=== PATIENT | male | born 1965 | race Caucasian/White ===

== ENCOUNTER 2016-10-31 00:48 | Emergency (ER) | payer OTHER ==
[~2016-10-31] VITALS: Ht 182.9 cm; Wt 70.5 kg
[~2016-10-31 00:48] MED LIST: ATARAX 25MG25 MG/TAB PO; ATOMOXETINE; BUTRANS10 MCG/HR TD; CEPHALEXIN500 M1 PO; CLINDAMYCIN HC150 MG PO; CLINDAMYCIN300 MG PO; COREG12.5 MG PO; CYMBALTA 60MG60 MG PO; DILAUDID 2MG TAB2 MG PO; INDOMETHACIN25 MG PO; LAMISIL CREAM30 GM TP; OXYCONTIN60 MG PO; PEN-VEE K500 MG PO; PERCOCET 325 MG1 TA2 PO; PERCOCET 5/321 UDTAB PO; PHENERGAN25 MG RC; PREDNISONE20 MG PO; VITAMIN C1 TAB PO; VITAMIN D; ZITHROMAX 250M250 MG PO; ZOFRAN4 M1 PO; [UNRECOGNIZED DRUG - OTHER]
[2016-10-31 00:57] VITALS: PULSE 66; TEMP 97.9
[2016-10-31] MEDS ORDERED: FLEXERIL5 MG PO ×2 (01:05→01:06)
[2016-10-31] MEDS ORDERED: PEN-VEE K500 MG PO (01:56)
[2016-10-31 02:00] VITALS: BP 160/98
== END 2016-10-31 02:08 | disposition home or self-care (01) ==
LOC: COL.ER 00:48
DX: K08.89 Other specified disorders of teeth and supporting structures (principal); K01.1 Impacted teeth; K03.81 Cracked tooth; I10 Essential (primary) hypertension; F17.210 Nicotine dependence, cigarettes, uncomplicated; T44.7X6A Underdosing of beta-adrenoreceptor antagonists, initial encounter; Z91.128 Patient's intentional underdosing of medication regimen for other reason

== ENCOUNTER → 2020-08-30 | Outpatient (CLI) | payer OTHER ==
[~2020-08-30] MED LIST changes: +FLEXERIL5 MG PO
== END ==
LOC: COL.RAD 07:19
DX: M51.26 Other intervertebral disc displacement, lumbar region (principal); M79.661 Pain in right lower leg; R20.0 Anesthesia of skin; Z98.1 Arthrodesis status
CPT/HCPCS: A9585

== ENCOUNTER 2022-03-20 05:18 | Day surgery (SDC) | payer OTHER ==
[~2022-03-20] VITALS: Ht 182.9 cm; Wt 77.3 kg
[2022-03-20] MEDS ORDERED: TOPROL XL 25MG25 MG PO (05:43)
[2022-03-20] MEDS ORDERED: NATURE'S BLEND600 M2 PO (05:43)
[2022-03-20] MEDS ORDERED: ASPIRIN E.C. 8181 MG PO (05:44)
[2022-03-20] MEDS ORDERED: PERCOCET 325 MG1 TAB PO (05:44)
[2022-03-20 05:56] VITALS: BP 165/97; PULSE 70; TEMP 98.3
--- NOTE | 2022-03-20 06:25 | NUR ---
0530 - 56 year old male admitted [place] [facility] [place] [place] ambulation w/o assistive devices per own will. Procedure verified and consent signed. Medications, HX and allergies reviewed. PT did not bring a medication list, but is a good health historian. PT states metal implants in lower spine and neck. PT oriented to room and call alarcon, within reach; non-slip socks are on and side rails x1. Vitals obtained.
[2022-03-20] MEDS ORDERED: CEPHALEXIN500 M1 PO (07:45)
[2022-03-20] MEDS ORDERED: PERCOCET 325 MG1 TA2 PO (07:45)
[2022-03-20 11:30] VITALS: BP 141/83; PULSE 63; TEMP 97.8
[2022-03-20 11:45] VITALS: BP 132/79; PULSE 59; TEMP 97.8
[2022-03-20 12:00] VITALS: BP 133/78; PULSE 60; TEMP 97.8
--- NOTE | 2022-03-20 12:11 | NUR ---
PT TO ROOM 332 PER BED WITH REPORT FROM SHARRI TYLER [email or web address]. PT IS A/O X3 VSS, LUNGS COARSE, PT IS CURRENT EVERYDAY SMOKER. IV TO LWRIST. DRESSING TO RIGHT SHOULDER CDI WITH AQUACEL OVER INCISION. RIGHT ARM IN SIMPLE SLING. PROVIDED PEPSI AND SANDWICH BOX PER PT REQUEST. PT HAS DISCHARGE ORDERS PER DR. LUO.
[2022-03-20 12:15] VITALS: BP 133/78; PULSE 60; TEMP 97.8
[2022-03-20 12:46] VITALS: BP 128/76; PULSE 59; TEMP 97.8
--- NOTE | 2022-03-20 15:28 | NUR ---
PT MET DISCHARGE CRITERIA AND WAS DISCHARGED PER WHEEL CHAIR AFTER REVIEWING DISCHARGE INSTRUCTIONS.
== END 2022-03-20 15:47 | disposition home or self-care (01) ==
LOC: SDCO 05:18 → SURG 11:30 → SDCO 15:47
DX: M75.101 Unspecified rotator cuff tear or rupture of right shoulder, not specified as traumatic (principal); I10 Essential (primary) hypertension; Z79.82 Long term (current) use of aspirin; Z79.891 Long term (current) use of opiate analgesic; Z79.899 Other long term (current) drug therapy; F17.210 Nicotine dependence, cigarettes, uncomplicated
CPT/HCPCS: OP; A4619; C1713; C1776; J0330; J0360; J1100; J1170; J1580; J2250; J2405; J2704; J2710; J2795; J3010; J7120

== ENCOUNTER → 2023-07-10 | Outpatient (CLI) | payer OTHER ==
[~2023-07-10] MED LIST changes: +ASPIRIN E.C. 8181 MG PO; +NATURE'S BLEND600 M2 PO; +PERCOCET 325 MG1 TAB PO; +TOPROL XL 25MG25 MG PO
== END ==
LOC: COL.RAD 13:56
DX: M94.262 Chondromalacia, left knee (principal); M23.204 Derangement of unspecified medial meniscus due to old tear or injury, left knee